=== PATIENT | male | born 2000 | race Hispanic/Latino ===

== ENCOUNTER 2024-07-22 14:05 | Emergency (ER) | payer SELFPAY ==
[~2024-07-22] VITALS: Ht 165.1 cm; Wt 63.5 kg
[2024-07-22] VITALS (11 sets, daily range): BP systolic 109–131; BP diastolic 66–88
== END 2024-07-22 16:57 | disposition home or self-care (01) | DRG 566 ==
LOC: ED 14:05
DX: M21.371 Foot drop, right foot (principal)